=== PATIENT | female | born 1980 ===

== ENCOUNTER 2021-02-03 14:03 | Outpatient (REF) | payer OTHER, SELFPAY ==
--- NOTE | ~2021-02-03 | MM_ITS ---
EXAMINATION: MM DIAGNOSTIC DIGITAL BREAST TOMOSYNTHESIS, BILATERAL US DIAGNOSTIC ULTRASOUND BREAST, LEFT CLINICAL INFORMATION: Due for yearly. Also follow-up probable fibroadenoma mid upper outer left breast. The lifetime risk of breast cancer based on the Tyrer-Cuzick Model is 12%. COMPARISON: Mammography: 02/04/2020, 01/31/2019, 01/21/2017; targeted left breast ultrasound 02/02/2019, 08/06/2019, and 02/04/2020. TECHNIQUE: Digital breast tomosynthesis is performed in both the craniocaudal and mediolateral oblique views along with computer-aided detection (CAD). Synthesized 2D images are generated from the tomosynthesis. Ultrasound left breast is targeted to the upper outer quadrant. Grayscale imaging and color Doppler are performed without and with harmonics. FINDINGS: There are scattered areas of fibroglandular density (ACR BI-RADS breast composition Category b). Parenchymal pattern is similar to prior studies with denser breast tissue composition in the upper outer quadrant. There is no interval mass or developing density or architectural abnormality. There is an oval circumscribed nodule again noted mid upper outer left breast similar to prior studies. No abnormal calcifications. The axilla and skin contours are unremarkable. Ultrasound of the left breast circumscribed solid mass 3:00 position 10-12 cm from nipple shows no significant changes in size or shape. The mass measures 1.4 x 1.2 x 0.8 cm. Prior measurement is 1.5 x 1.3 x 0.8 cm on 02/04/2020 and 1.5 x 1.1 x 0.8 cm on initial ultrasound of this area 02/02/2019. The lesion is now considered benign and is likely a fibroadenoma. Results are discussed with the patient at time of visit. MM/MM tomosynthesis diagnostic BI IMPRESSION: 1. Mammography shows no significant changes from prior studies. 2. Left breast solid mass 3:00 position is 1.4 cm, stable on ultrasound when compared with prior exams, and now considered to be benign, likely fibroadenoma. ASSESSMENT: BI-RADS 2: Benign RECOMMENDATION: Routine annual mammography screening. This patient's information was entered into a reminder system with a target due date for their next mammogram.
== END 2021-02-03 14:04 | disposition home or self-care (01) ==
LOC: HO.MAMMO 14:03
PROVIDERS: PCP Internal Medicine; Visit Provider Internal Medicine
DX: N63.25 Unspecified lump in the left breast, overlapping quadrants (principal)
CPT/HCPCS: 76642; 77062; 77066

== ENCOUNTER 2021-02-25 15:22 | Outpatient (REF) | payer OTHER, SELFPAY ==
[2021-02-25 17:23] LABS: Appearance Urine CLEAR; Color Urine YELLOW; Glucose Urine UA NEG (NEG); Leukocyte Esterase Urine NEG (NEG); Nitrite Urine NEG (NEG); PH 5.5 (5.0-8.0); Specific Gravity - Urine 1.025 (1.005-1.025); UACC Culture Trigger NO; Urine Blood TRACE (NEG); Urine Ketones NEG (NEG); Urine Protein NEG (NEG-TRACE)
[2021-02-25 18:07] LABS: Bacteria Urine TRACE /LPF; RBC Urine 0 /HPF (0); Squamous Epithelial Cell Urine TRACE /LPF; WBC Urine 0 /HPF (0-4)
== END 2021-02-25 15:23 | disposition home or self-care (01) ==
LOC: HO.LAB 15:22
PROVIDERS: PCP Internal Medicine; Visit Provider Internal Medicine
DX: R35.0 Frequency of micturition (principal)
CPT/HCPCS: 81001

== ENCOUNTER 2021-10-20 08:54 | Outpatient (REF) | payer OTHER, SELFPAY ==
[2021-10-20 10:20] LABS: Alanine Aminotransferase 15 U/L (0-31); Albumin Level 4.4 g/dL (3.5-5.0); Alkaline Phosphatase 52 U/L (39-117); Anion Gap 12 (12-20); Aspartate Amino Transferase 12 U/L (5-31); Bilirubin Total 0.5 mg/dL (0.0-1.0); Blood Urea Nitrogen 18 mg/dL (9-16); Calcium 9.3 mg/dL (8.4-10.2); Carbon Dioxide 25 mmol/L (22-29); Chloride 108 mmol/L (96-108); Cholesterol 208 mg/dL; Estimated Glomerular Filt Rate > 60; Glucose Fasting 110 mg/dL (60-99); HDL Cholesterol 46 mg/dL; LDL Cholesterol Calculated 148 mg/dl; Potassium 4.8 mmol/L (3.3-5.1); Sodium 140 mmol/L (135-145); Total Protein 7.2 g/dL (6.5-8.0); Triglycerides 70 mg/dL
[2021-10-20 10:40] LABS: Vitamin D 25-OH Total 13.4 ng/mL (>30)
== END 2021-10-20 08:55 | disposition home or self-care (01) ==
LOC: HO.LAB 08:54
PROVIDERS: PCP Internal Medicine; Visit Provider Internal Medicine
DX: Z00.00 Encounter for general adult medical examination without abnormal findings (principal); E78.5 Hyperlipidemia, unspecified; E55.9 Vitamin D deficiency, unspecified
CPT/HCPCS: 36415; 80053; 80061; 82306

== ENCOUNTER 2021-12-10 12:04 | Outpatient (REF) | payer OTHER, SELFPAY ==
[2021-12-10 21:15] LABS: CT PCR NOT DETECTED (Not Detect.); NG PCR NOT DETECTED (Not Detect.)
[2021-12-16 19:06] LABS: HPV mRNA E6/E7 rflx Not Detected (Not Detected)
== END 2021-12-10 12:05 | disposition home or self-care (01) ==
LOC: HO.LAB 12:04
PROVIDERS: Visit Provider Advanced Practice Midwife
DX: Z01.419 Encounter for gynecological examination (general) (routine) without abnormal findings (principal); Z11.51 Encounter for screening for human papillomavirus (HPV); Z20.2 Contact with and (suspected) exposure to infections with a predominantly sexual mode of transmission
CPT/HCPCS: 87491; 87591; 87624; 88142

== ENCOUNTER 2022-02-05 09:53 | Outpatient (REF) | payer OTHER, SELFPAY ==
--- NOTE | ~2022-02-05 | MM_ITS ---
EXAMINATION: MM SCREENING DIGITAL BREAST TOMOSYNTHESIS, BILATERAL CLINICAL INFORMATION: Screening. Asymptomatic. The lifetime risk of breast cancer based on the Tyrer-Cuzick Model is 20%. COMPARISON: Mammography: 02/03/2021, 02/04/2020, 01/31/2019; targeted left breast ultrasound 02/03/2021, 02/04/2020, 08/06/2019, 02/02/2019. TECHNIQUE: Digital breast tomosynthesis is performed in both the craniocaudal and mediolateral oblique views along with computer-aided detection (CAD). Synthesized 2D images are generated from the tomosynthesis. FINDINGS: The breasts are heterogeneously dense, which may obscure small masses (ACR BI-RADS breast composition Category c). Parenchymal pattern is similar to prior studies and there is no developing density or interval mass or architectural abnormality. No abnormal calcifications. The axilla and skin contours are unremarkable. Circumscribed oval mass under 2 cm mid outer left breast is chronic finding and likely a fibroadenoma. There is a small adjacent stable benign circumscribed satellite nodule or intramammary node. MM/MM tomosynthesis screening BI IMPRESSION: No significant changes from prior studies. ASSESSMENT: BI-RADS 2: Benign RECOMMENDATION: Routine annual mammography screening. This patient's information was entered into a reminder system with a target due date for their next mammogram.
== END 2022-02-05 09:54 | disposition home or self-care (01) ==
LOC: HO.MAMMO 09:53
PROVIDERS: PCP Internal Medicine; Visit Provider Internal Medicine
DX: Z12.31 Encounter for screening mammogram for malignant neoplasm of breast (principal)
CPT/HCPCS: 77063; 77067

== ENCOUNTER → 2022-09-21 08:46 | Outpatient (REF) | payer OTHER, SELFPAY | LOC: HO.SL 08:46 | PROVIDERS: PCP Internal Medicine; Visit Provider Internal Medicine | DX: R40.0 Somnolence (principal); R06.83 Snoring | CPT/HCPCS: 95806 ==

== ENCOUNTER 2022-10-13 08:54 | Outpatient (REF) | payer OTHER, SELFPAY ==
[2022-10-13 09:05] LABS: MANUAL DIFF FLAG NO
[2022-10-13 09:23] LABS: Basophils Percent Auto 0.4 % (0-2); Eosinophils Absolute Auto 0.1 X10*3/uL (0.0-0.4); Hematocrit 40.4 % (37.0-47.0); Hemoglobin 12.6 g/dl (12.0-16.0); Imm Gran Abs Auto 0.01 X10*3/uL (0.00-0.03); Imm Gran Pct Auto 0.2 % (0.0-0.4); Lymphocytes Absolute Auto 1.3 X10*3/uL (1.2-4.9); Lymphocytes Percent Auto 22.9 % (20-40); Mean Corpuscular HGB Conc 31.2 g/dl (31.0-35.0); Mean Corpuscular Hemoglobin 27.3 pg (27.0-33.0); Mean Corpuscular Volume 87.4 fL (80.0-98.0); Mean Platelet Volume 9.5 fL (9.4-12.3); Monocytes Absolute Auto 0.6 X10*3/uL (0.1-1.2); Neutrophils Absolute Auto 3.6 x10*3/uL (2.0-8.3); Neutrophils Percent Auto 64.5 % (45-73); Platelet Count 279 X10*3/uL (160-400); Red Blood Count 4.62 X10*6/uL (4.20-5.50); Red Cell Distribution Width 12.8 % (11.0-16.0); White Blood Count 5.5 X10*3/uL (4.8-10.8)
[2022-10-13 10:05] LABS: Alanine Aminotransferase 29 U/L (0-31); Albumin Level 4.3 g/dL (3.5-5.0); Alkaline Phosphatase 56 U/L (39-117); Anion Gap 11 (12-20); Aspartate Amino Transferase 15 U/L (5-31); Bilirubin Total 0.5 mg/dL (0.0-1.0); Blood Urea Nitrogen 13 mg/dL (9-16); Calcium 9.1 mg/dL (8.4-10.2); Carbon Dioxide 24 mmol/L (22-29); Chloride 109 mmol/L (96-108); Cholesterol 202 mg/dL; Estimated Glomerular Filt Rate > 60; Glucose Fasting 106 mg/dL (60-99); HDL Cholesterol 48 mg/dL; LDL Cholesterol Calculated 142 mg/dl; Potassium 4.7 mmol/L (3.3-5.1); Sodium 139 mmol/L (135-145); Total Protein 6.7 g/dL (6.5-8.0); Triglycerides 63 mg/dL
[2022-10-13 10:23] LABS: Vitamin D 25-OH Total 17.8 ng/mL (>30)
== END 2022-10-13 08:55 | disposition home or self-care (01) ==
LOC: HO.LAB 08:54
PROVIDERS: PCP Internal Medicine; Visit Provider Internal Medicine
DX: Z00.00 Encounter for general adult medical examination without abnormal findings (principal); E78.5 Hyperlipidemia, unspecified; Z88.9 Allergy status to unspecified drugs, medicaments and biological substances; E55.9 Vitamin D deficiency, unspecified
CPT/HCPCS: 36415; 80053; 80061; 82306; 85025

== ENCOUNTER 2023-02-07 09:48 | Outpatient (REF) | payer OTHER, SELFPAY ==
--- NOTE | ~2023-02-07 | MM_ITS ---
EXAMINATION: MM SCREENING DIGITAL BREAST TOMOSYNTHESIS, BILATERAL CLINICAL INFORMATION: Screening. Asymptomatic. COMPARISON: Mammography: This study is compared with prior exams dating back to 2019. TECHNIQUE: Digital breast tomosynthesis is performed in both the craniocaudal and mediolateral oblique views along with computer-aided detection (CAD). Synthesized 2D images are generated from the tomosynthesis. FINDINGS: There are scattered areas of fibroglandular density (ACR BI-RADS breast composition Category b). There are no significant masses, abnormal calcifications, or other abnormalities. On prior sonographic studies from 2020 and earlier, a benign, well-circumscribed mass in known in the 3:00 position of left breast. This was 14 mm in greatest dimension and was shown to represent is stable solid mass consistent with a fibroadenoma. MM/MM tomosynthesis screening BI IMPRESSION: No mammographic evidence of malignancy. ASSESSMENT: BI-RADS BI-RADS 2 - Benign Findings RECOMMENDATION: Routine annual mammography screening. 1 year F/U This examination should not preclude the clinical evaluation of a suspicious palpable abnormality. This patient's information was entered into a reminder system with a target due date for their next mammogram.
== END 2023-02-07 09:49 | disposition home or self-care (01) ==
LOC: HO.MAMMO 09:48
PROVIDERS: PCP Internal Medicine; Visit Provider Internal Medicine
DX: Z12.31 Encounter for screening mammogram for malignant neoplasm of breast (principal)
CPT/HCPCS: 77063; 77067

== ENCOUNTER → 2023-02-07 10:00 | Outpatient (BNV) | payer OTHER, SELFPAY | PROVIDERS: PCP Internal Medicine; Visit Provider Radiology Diagnostic Radiology | DX: Z12.31 Encounter for screening mammogram for malignant neoplasm of breast (principal) | CPT/HCPCS: 77063; 77067 ==

== ENCOUNTER 2023-09-15 08:47 | Outpatient (AMB) | payer OTHER, SELFPAY ==
--- NOTE | 2023-09-15 08:49 | A.OFFVIS_ITS ---
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 Doing well with no concerns. Having painful bumps on the external area, resolve on there own. She tries to eat healthy, no regular exercise. Regular monthly menses. Currently is sexually active. She denies vaginal itching and irritation. STI screening offered; she declines. Denies family history of ovarian or colon cancer. FH of breast cancer-sister. Last pap smear 2021, negative. Mammogram: 2022. [facility] Medical History FH: breast cancer in first degree relative Physical exam Fibroadenoma of left breast Pure hypercholesterolemia Hypovitaminosis D Surgical History History of tubal ligation History of removal of cyst History of appendectomy History of section Family History Father Medical history unknown Mother Skin cancer Diabetes Maternal Grandmother Breast cancer Maternal Grandfather Cancer CVD (cardiovascular disease) Sister Breast cancer, Onset Age: 40 Social History Housing: House Alcohol intake: never Patient Tobacco Use Status: Former Tobacco user Tobacco use type: Cigarette e-Cigarette/Vaping Use: Never Used Second Hand Smoke Exposure: No service: No Current occupational status: employed Current occupational exposures/hazards: No Cognitive needs: No Hearing needs: No Vision needs: No Female Reproductive History Menstrual Duration of menses: 3-5 days Date of last menstrual period: 08/19/23 control method: permanent sterilization Permanent Sterilization: BTL Total pregnancies: 2 Full term: 3 Number of Living Children: 3 Multiple births: 1 Date of last pap smear: 12/10/21 (neg pap and hpv) Date of Mammogram: 02/07/23 (Birad 2) Review of Systems Const All systems reviewed & are unremarkable except as noted in HPI and below Reports as per HPI Eyes Reports no additional complaints ENT Reports no additional complaints Card Reports no additional complaints Resp Reports no additional complaints GI Reports as per HPI and Reports no additional complaints Reports as per HPI Musc Reports no additional complaints Skin/Breast Reports as per HPI Neuro Reports no additional complaints Psych Reports no additional complaints Endo Reports no additional complaints Roberth/Lymph Reports no additional complaints Aller/Immun Reports no additional complaints Physical Exam Vital Signs: Last Vital Signs BP 120/78 09/15/23 08:50 BMI result Body Mass Index 27.3 Const General: cooperative, healthy appearing, no acute distress, well developed and alert Orientation/consciousness: patient oriented x3 HEENT Head: Yes normal to inspection Eyes General: appearance normal, both eyes and all related structures Neck Neck: Yes normal visual inspection Thyroid: Thyroid normal Chest Chest palpation & inspection: normal inspection of the chest and other (no puckering, dimpling, peau de orange, retraction, discharge, masses) Breast/axilla inspection: normal inspection of the breasts Breast/axilla palpation: normal palpation of the breasts Resp Effort & Inspection: normal respiratory effort GI Inspection: Yes normal to inspection Palpation (GI): Soft to palpation Rectal Exam - Female: deferred Other: Shaving vulva, no lesions or pustules, healing area on the mons w/ scattered small scarring. General: Yes bladder normal to palpation External Female Exam: normal external appearance and normal appearance of the urethra Speculum Exam - Vagina: normal appearance of the vagina, normal palpation and normal vaginal discharge Speculum Exam - Cervix: normal appearance of the cervix and normal palpation Bimanual exam- vagina & uterus: normal bimanual exam, normal palpation, uterine size normal, bladder normal to palpation, normal palpation and non-tender Bimanual Exam- Adnexa, other: no masses Skin General skin exam: no rashes or lesions noted Rashes: no rashes Neuro General: patient oriented x3 Cognition (Neuro): normal cognition Extrem General: Yes normal to inspection Psych Attitude: cooperative Thought process: Normal thought process present Assessment & Plan Assessment & Plan (1) Encounter for well woman exam with routine gynecological exam: Code(s): Z01.419 - Encounter for gynecological examination (general) (routine) without abnormal findings Plan Discussed: Current recommendations for pap smears per ASCCP guidelines. Breast awareness and periodic breast exams. Maintain a healthy lifestyle including a well balanced diet and routine exercise. Advised to stop shaving, use of an antimicrobial soap, rinse well, dry with cotton, use cotton underwear and loose outer clothing, if any concerns or has a area that needs to be examined advised to come in during the time when booking the appointment so we can see an accurate description of what she is experiencing 1st hand. Mammogram yearly. Patient verbalizes understanding and agrees to the plan of care. She was given opportunity to ask questions and all questions were answered to the best of my ability. 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 This note is constructed using voice recognition software. While every effort has been made to ensure accuracy, interventional radiologist errors may have been included. Coding Level of Care Code Est Pt Prev Care 40-64y(50829) Diagnoses Encounter for well woman exam with routine gynecological exam Z01.419
[2023-09-15 08:50] VITALS: BP 120/78; BMI 27.3
== END 2023-09-15 09:22 | disposition home or self-care (01) ==
PROVIDERS: PCP Internal Medicine; Visit Provider Advanced Practice Midwife
DX: Z01.419 Encounter for gynecological examination (general) (routine) without abnormal findings (principal)
CPT/HCPCS: 99396

== ENCOUNTER → 2023-09-15 08:47 | Outpatient (BNVA) | payer OTHER, SELFPAY | PROVIDERS: PCP Internal Medicine; Visit Provider Advanced Practice Midwife | DX: Z01.419 Encounter for gynecological examination (general) (routine) without abnormal findings (principal) | CPT/HCPCS: 99396 ==

== ENCOUNTER 2023-10-18 09:14 | Outpatient (AMB) | payer OTHER, SELFPAY ==
--- NOTE | 2023-10-18 09:19 | MHC.PC.OV ---
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 Mammogram done January 2023. Pap smear done 2021 with negative HPV. Denies any chest pain or shortness of breath. Complains of pain in feet and feels like they are swollen since she had COVID-19 for the 2nd time in July 2023. Has full active range of motion. The pain in feet improves soaking them in hot water. [facility] Medical History (Updated 10/18/23 @ 09:54 by Merlyn Ferreira MD) FH: breast cancer in first degree relative Physical exam Fibroadenoma of left breast Pure hypercholesterolemia Hypovitaminosis D Surgical History History of tubal ligation History of removal of cyst History of appendectomy History of section Family History Father Medical history unknown Mother Skin cancer Diabetes Maternal Grandmother Breast cancer Maternal Grandfather Cancer CVD (cardiovascular disease) Sister Breast cancer, Onset Age: 40 Social History Housing: House Alcohol intake: never Patient Tobacco Use Status: Former Tobacco user Tobacco use type: Cigarette e-Cigarette/Vaping Use: Never Used Second Hand Smoke Exposure: No service: No Current occupational status: employed Current occupational exposures/hazards: No Cognitive needs: No Hearing needs: No Vision needs: No Questionnaire PHQ-9 Over the last 2 weeks, how often have you been bothered by any of the following problems? 1. Little interest or pleasure in doing things: not at all 2. Feeling down, depressed, or hopeless: not at all 3. Trouble falling or staying asleep, or sleeping too much: not at all 4. Feeling tired or having little energy: not at all 5. Poor appetite or overeating: not at all 6. Feeling bad about yourself - or that you are a failure or have let yourself or your family down: not at all 7. Trouble concentrating on things, such as reading the newspaper or watching television: not at all 8. Moving or speaking so slowly that other people could have noticed. Or the opposite - being so fidgety or restless that you have been moving around a lot more than usual: not at all 9. Thoughts that you would be better off or of hurting yourself in some way: not at all Total score: 0 Depression Screening Interpretation: Negative Depression Screening Done: Yes [id number] - PHQ-9 Billing: Yes Source: Developed by Drs. Chai Jaquez, Yulissa Gunn, Jagdeep Judge and colleagues, with an educational ruthann from [employer]. Thrive Questionnaire Date Thrive assessed: 10/18/23 I am a: Patient What is your living situation today?: I have a steady place to live Within the past 12 months, did the food you bought not last and you didn't have the money to get more?: Never true Within the past 12 months, did you worry whether your food would run out before you got money to buy more?: Never true Do you have trouble paying for medicines?: No Do you have trouble getting transportation to medical appointments?: No Do you have trouble paying your heating and electricity bill?: No Do you have trouble taking care of your child, family member or friend?: No Do you have trouble with day-to-day activities such as bathing, preparing meals, shopping, managing finances, etc.?: No Are you currently unemployed and looking for a job?: No Are you interested in more education?: No Please select the resources that you would like help with: None Currently or been in a relationship where the following occur: no concerns reported THRIVE Score: 0 AUDIT C Alcohol Use Questionnaire (AUDIT-C) 1. How often do you have a drink containing alcohol?: Never Total Score: 0 Score Reviewed/Action Taken: No WILL-7 AMB Questionnaire WILL-7 Date WILL - 7 assessed: 10/18/23 Feeling nervous, anxious, or on edge: 0 = Not at all Not being able to stop or control worryin = Not at all Worrying too much about different things: 0 = Not at all Trouble relaxin = Not at all Being so restless that it is hard to sit still: 0 = Not at all Becoming easily annoyed or irritable: 0 = Not at all Feeling afraid as if something awful might happen: 0 = Not at all Total WILL-7 score (0-4 normal; 5-9 mild; 10-14 moderate; 15-21 severe): 0 Source: Developed by Drs. Chai Jaquez, Yulissa Gunn, Jagdeep Judge and colleagues, with an educational ruthann from [employer]. WILL-7 Assessment Billing WILL-7 Assessment Tool: WILL-7 Assessment 16652 Review of Systems Const All systems reviewed & are unremarkable except as noted in HPI and below Eyes Reports no additional complaints, Denies change in vision and Denies other visual disturbances Card Denies chest pain at rest, Denies chest pain with activity, Denies edema, Denies irregular heart rhythm, Denies claudication, Denies dyspnea, Denies dyspnea on exertion, Denies orthopnea, Denies paroxysmal nocturnal dyspnea and Denies slow heart rate Resp Denies cough, Denies dyspnea and Denies dyspnea on exertion Physical exam (Primary Care) Vital Signs: Last Vital Signs BP 120/78 10/18/23 09:24 BMI result Body Mass Index 27.6 Tobacco/Smoking Status: Tobacco use Status Tobacco use date assessed 10/18/23 10/18/23 09:23 Patient Tobacco Use Status Former Tobacco user 10/18/23 09:23 Tobacco use type Cigarette 10/18/23 09:23 e-Cigarette/Vaping Use Never Used 10/18/23 09:23 PHQ-9: PHQ-9 Score PHQ-9: Total score 0 10/18/23 09:50 Depression Screening Interpretation: Negative Thrive Assessment: Date of Thrive Assessment Date Thrive assessed 10/18/23 10/18/23 09:23 Currently or been in a relationship where the following occur: no concerns reported Const Orientation/consciousness: patient oriented x3 HENCO Head: Yes normal to inspection, Yes normocephalic and Yes atraumatic Ears: external ears normal Eyes General: appearance normal, both eyes and all related structures Eyelids: Yes eyelids normal Conjunctivae: conjunctivae normal Neck Neck: Yes normal visual inspection and Yes supple Resp Effort & Inspection: normal respiratory effort Auscultation: clear to auscultation bilaterally Cardio Jugular venous distension: no JVD Rate: regular rate Rhythm: regular rhythm Heart sounds: S1 normal heart sound present and S2 normal heart sound present GI Inspection: Yes normal to inspection Palpation (GI): Soft to palpation and nontender Auscultation: normal bowel sounds Skin General skin exam: no rashes or lesions noted Neuro General: patient oriented x3 and no focal motor deficits Extrem General: Yes full ROM Psych Appearance: grossly normal Assessment and Plan Assessment & Plan (1) Physical exam: Code(s): Z00.00 - Encounter for general adult medical examination without abnormal findings Plan: Repeat in a year. Orders: Orders Comprehensive [place]. Panel Fast Today Z00.00 - Encounter for general adult medical examination without abnormal findings XR foot LT 2V Today M79.672 - Pain in left foot Vitamin D 25-OH Total Today E55.9 - Vitamin D deficiency, unspecified Vitamin B12 and Folate Today E53.8 - Deficiency of other specified B group vitamins Complete Blood Count Auto Diff Today Z88.9 - Allergy status to unspecified drugs, medicaments and biological substances Lipid Panel Today E78.5 - Hyperlipidemia, unspecified, Z00.00 - Encounter for general adult medical examination without abnormal findings XR foot RT 2V Today M79.671 - Pain in right foot Referrals Podiatry Referral M79.671 - Pain in right foot, M79.672 - Pain in left foot Medications: Refilled fluticasone propionate 50 mcg/actuation (Flonase Allergy Relief) administer into each nostril 1 spray intranasal DAILY 16 grams 1RF 30 days cholecalciferol (vitamin D3) 50 mcg PO DAILY 90 caps 1RF 90 days E55.9 - Vitamin D deficiency, unspecified Coding Level of Care Code Est Pt Prev Care 40-64y(34223) Diagnoses Physical exam Z00.00 Additional Codes WILL-7 Assessment Billing - WILL-7 Assessment Tool: WILL-7 Assessment [id number] ([id number]) Time Spent (min) 32
[2023-10-18 09:24] VITALS: BP 120/78; BMI 27.6
== END 2023-10-18 09:53 | disposition home or self-care (01) ==
PROVIDERS: Visit Provider Internal Medicine
DX: Z00.00 Encounter for general adult medical examination without abnormal findings (principal)
CPT/HCPCS: 99396

== ENCOUNTER 2023-12-07 08:19 | Outpatient (REF) | payer OTHER, SELFPAY ==
[2023-12-07 08:35] LABS: MANUAL DIFF FLAG NO
[2023-12-07 08:52] LABS: Basophils Percent Auto 0.5 % (0-2); Eosinophils Absolute Auto 0.1 X10*3/uL (0.0-0.4); Eosinophils Percent Auto 1.5 % (0-4); Hematocrit 37.6 % (37.0-47.0); Imm Gran Abs Auto 0.02 X10*3/uL (0.00-0.03); Imm Gran Pct Auto 0.3 % (0.0-0.4); Lymphocytes Absolute Auto 1.4 X10*3/uL (1.2-4.9); Lymphocytes Percent Auto 22.9 % (20-40); Mean Corpuscular HGB Conc 31.9 g/dl (31.0-35.0); Mean Corpuscular Hemoglobin 27.4 pg (27.0-33.0); Mean Corpuscular Volume 85.8 fL (80.0-98.0); Mean Platelet Volume 9.6 fL (9.4-12.3); Monocytes Absolute Auto 0.5 X10*3/uL (0.1-1.2); Monocytes Percent Auto 8.8 % (2-11); Neutrophils Absolute Auto 3.9 x10*3/uL (2.0-8.3); Platelet Count 274 X10*3/uL (160-400); Red Blood Count 4.38 X10*6/uL (4.20-5.50); Red Cell Distribution Width 13.5 % (11.0-16.0); White Blood Count 5.9 X10*3/uL (4.8-10.8)
[2023-12-07 09:33] LABS: Alanine Aminotransferase 27 U/L (0-31); Albumin Level 4.2 g/dL (3.5-5.0); Alkaline Phosphatase 50 U/L (39-117); Anion Gap 12 (12-20); Aspartate Amino Transferase 19 U/L (5-31); Bilirubin Total 0.4 mg/dL (0.0-1.0); Blood Urea Nitrogen 17 mg/dL (9-16); Calcium 8.6 mg/dL (8.4-10.2); Carbon Dioxide 20 mmol/L (22-29); Chloride 112 mmol/L (96-108); Cholesterol 190 mg/dL (<200); Estimated Glomerular Filt Rate > 60; Glucose Fasting 111 mg/dL (60-99); HDL Cholesterol 50 mg/dL (>40); LDL Cholesterol Calculated 127 mg/dL (<100); Potassium 4.8 mmol/L (3.3-5.1); Sodium 139 mmol/L (135-145); Total Protein 7.2 g/dL (6.5-8.0); Triglycerides 69 mg/dL (<150)
[2023-12-07 09:51] LABS: Vitamin D 25-OH Total 16.8 ng/mL (>30)
[2023-12-07 10:48] LABS: Folate 10.8 ng/mL (> or = 4.0); Vitamin B12 250 pg/mL (200-900)
== END 2023-12-07 08:20 | disposition home or self-care (01) ==
LOC: HO.LAB 08:19
PROVIDERS: PCP Internal Medicine; Visit Provider Internal Medicine
DX: Z00.00 Encounter for general adult medical examination without abnormal findings (principal); E55.9 Vitamin D deficiency, unspecified; E78.5 Hyperlipidemia, unspecified; E53.8 Deficiency of other specified B group vitamins; Z88.9 Allergy status to unspecified drugs, medicaments and biological substances
CPT/HCPCS: 36415; 80053; 80061; 82306; 82607; 82746; 85025

== ENCOUNTER 2024-02-20 10:12 | Outpatient (REF) | payer OTHER, SELFPAY ==
--- NOTE | ~2024-02-20 | MM_ITS ---
EXAMINATION: MM SCREENING DIGITAL BREAST TOMOSYNTHESIS, BILATERAL CLINICAL INFORMATION: Screening. Asymptomatic. COMPARISON: Mammography: Comparison is made with available priors TECHNIQUE: Digital breast mammography with tomosynthesis is performed in both the craniocaudal and mediolateral oblique views along with computer-aided detection (CAD). FINDINGS: The breasts are heterogeneously dense, which may obscure small masses (ACR BI-RADS breast composition Category c). There are no significant masses, abnormal calcifications, or other abnormalities. MM/MM tomosynthesis screening BI IMPRESSION: No mammographic evidence of malignancy. ASSESSMENT: BI-RADS BI-RADS 1 - Negative RECOMMENDATION: Routine annual mammography screening. 1 year F/U This examination should not preclude the clinical evaluation of a suspicious palpable abnormality. This patient's information was entered into a reminder system with a target due date for their next mammogram. Electronically signed by: Milana Valdivia DO 03/05/2024 05:52 PM EDT
== END 2024-02-20 10:13 | disposition home or self-care (01) ==
LOC: HO.MAMMO 10:12
PROVIDERS: PCP Internal Medicine; Visit Provider Internal Medicine
DX: Z12.31 Encounter for screening mammogram for malignant neoplasm of breast (principal)
CPT/HCPCS: 77063; 77067

== ENCOUNTER → 2024-02-20 10:15 | Outpatient (BNV) | payer OTHER, SELFPAY | PROVIDERS: PCP Internal Medicine; Visit Provider Internal Medicine | DX: Z12.31 Encounter for screening mammogram for malignant neoplasm of breast (principal) | CPT/HCPCS: 77063; 77067 ==

== ENCOUNTER 2024-04-06 09:34 | Outpatient (AMB) | payer OTHER, SELFPAY ==
--- NOTE | 2024-04-06 09:42 | MHC.OFFWIV ---
Intake Vital Signs 04/06/24 09:44 Height 5 ft 3 in Weight 156 lb BMI 27.6 BP 112/70 Blood Pressure Location Rt brachial Position Sitting Pulse 99 Pulse Source Pulse Oximeter Pulse Oximetry (%) 99 Oxygen Delivery Method Room Air Intake Visit Reasons: EP-private part abscess Intake Note: Patient here for abscess on left labia that has been present for about 2 days and is becoming more painful. Patient Tobacco Use Status: Former Tobacco user Allergies tramadol Allergy (Unknown, Verified 04/06/24 09:45) vomiting, swelling, swelling Do you need a note to return to daycare/school/sports/work: Yes HPI HPI Comments History of Present Illness Details Patient is a 43-year-old female complaining of 2 days of an abscess on her labia that is getting more painful and larger. She states she has had several of them in the past and has talked to her meter calibrator about them. They recommended she not shave or wax the area which she has been compliant with. She states that last night she did feel a little bit of a fever and chills but did not take a measured a temperature. She tells me she has never had a word catheter placed for the abscesses she has had in this area previously. [facility] Medical History FH: breast cancer in first degree relative Physical exam Fibroadenoma of left breast Pure hypercholesterolemia Hypovitaminosis D Surgical History History of tubal ligation History of removal of cyst History of appendectomy History of section Family History Father Medical history unknown Mother Skin cancer Diabetes Maternal Grandmother Breast cancer Maternal Grandfather Cancer CVD (cardiovascular disease) Sister Breast cancer, Onset Age: 40 Social History Housing: House Alcohol intake: never Patient Tobacco Use Status: Former Tobacco user Tobacco use type: Cigarette e-Cigarette/Vaping Use: Never Used Second Hand Smoke Exposure: No service: No Current occupational status: employed Current occupational exposures/hazards: No Cognitive needs: No Hearing needs: No Vision needs: No Review of Systems Const All systems reviewed & are unremarkable except as noted in HPI and below Physical Exam Vital Signs: Last Vital Signs Pulse 99 04/06/24 09:44 BP 112/70 04/06/24 09:44 Pulse Ox 99 04/06/24 09:44 Oxygen Delivery Method Room Air 04/06/24 09:44 BMI result Body Mass Index 27.6 Const General: cooperative, healthy appearing, comfortable, no acute distress and well developed Orientation/consciousness: patient oriented x3 Limitations: no limitations HEENT Head: Yes normal to inspection Ears: hearing grossly normal bilaterally General nose exam: Normal external nose present Face and sinus: Yes normal facial exam Eyes General: appearance normal, both eyes and all related structures Neck Neck: Yes normal visual inspection and Yes full ROM Resp Effort & Inspection: normal respiratory effort and able to speak in complete sentences Other: 4cm x 1.5cm left sided bartholin gland swelling with erythema, very tender to palpation Skin General skin exam: no rashes or lesions noted Neuro General: patient oriented x3 Extrem General: Yes normal to inspection Assessment & Plan Assessment & Plan (1) Bartholin's gland abscess: Code(s): N75.1 - Abscess of Bartholin's gland Plan: Due to the large size (>3cm) of the abscess, patient would be best served with an incision and drainage with a word catheter, we do not have a catheter at the walk-in clinic. I called [facility] and they were agreeable to seeing the patient today and asked her to head over to [address]. Relayed this information to the patient, she will be seeing one of the midwives to have an incision drainage and a word placement. Plan see above Coding Level of Care Code Est Pt Level 4 (31276) Diagnoses Bartholin's gland abscess N75.1
[2024-04-06 09:44] VITALS: BP 112/70; PULSE 99; O2SAT 99; BMI 27.6
== END 2024-04-06 11:42 | disposition home or self-care (01) ==
PROVIDERS: PCP Internal Medicine; Visit Provider Physician Assistant
DX: N75.1 Abscess of Bartholin's gland (principal)

== ENCOUNTER 2024-04-06 09:34 | Outpatient (REF) | payer OTHER, SELFPAY | END 2024-04-06 09:35 | disposition home or self-care (01) | LOC: HO.LAB 09:34 | PROVIDERS: PCP Internal Medicine; Visit Provider Physician Assistant | DX: N75.1 Abscess of Bartholin's gland (principal); N76.4 Abscess of vulva | CPT/HCPCS: 56420; 87070; 87205; 99212 ==

== ENCOUNTER 2024-04-06 11:03 | Outpatient (AMB) | payer OTHER, SELFPAY ==
--- NOTE | 2024-04-06 11:10 | MHC.OFFVIS ---
Intake Visit Reasons: Bartholin cyst Speech Correction Assistant: Speech Correction Assistant Present (Ting) Allergies tramadol Allergy (Unknown, Verified 04/06/24 11:10) vomiting, swelling, swelling Is last menstrual period known: Yes HPI Comments Details: Patient is here today sent from urgent care center for labial abscess treatment and evaluation. She reports symptoms onset were several days ago now the area is extremely painful. She reports having a Bartholin cyst in the past. No recent lesions of the skin or ingrown hairs noted and does not shave or wax. [facility] Medical History FH: breast cancer in first degree relative Physical exam Fibroadenoma of left breast Pure hypercholesterolemia Hypovitaminosis D Surgical History History of tubal ligation History of removal of cyst History of appendectomy History of section Family History Father Medical history unknown Mother Skin cancer Diabetes Maternal Grandmother Breast cancer Maternal Grandfather Cancer CVD (cardiovascular disease) Sister Breast cancer, Onset Age: 40 Social History Housing: House Alcohol intake: never Patient Tobacco Use Status: Former Tobacco user Tobacco use type: Cigarette e-Cigarette/Vaping Use: Never Used Second Hand Smoke Exposure: No service: No Current occupational status: employed Current occupational exposures/hazards: No Cognitive needs: No Hearing needs: No Vision needs: No Review of Systems Const All systems reviewed & are unremarkable except as noted in HPI and below Endo Reports no additional complaints Physical Exam Const General: cooperative, healthy appearing and no acute distress Other: Vulvar inspection-left labia edematous, erythematous throughout labia, no Bartholin cyst, no drainage, lesions, fluctuations, area indurated mid labia and skin is taunt, very tender to palpate. Psych Appearance: well kempt Attitude: cooperative Thought process: Normal thought process present Office Procedures Incision and Drainage Details: Incision and Drainage Procedure: The patient was placed in the dorsal lithotomy position. She was prepped with Betadine and 1.5ml Lidocaine 1% infiltrated to the area-left mid section of labia majora. The procedure was completed under aseptic technique. An #20needle was inserted and approx. 1cc of bloody purulent discharge was aspirated from the deep pocket was utilized. Culture obtained. Minimal bleeding was noted (few drops). The patient tolerated the procedure well and left the office in good condition. Post procedure Care: The patient was instructed to complete all of the antibiotics. Warm soaks/bath to the area prn. Warnings: if increased signs of infection, pain, swelling, fever >100.4, chills, or flu like symptoms-go to the emergency room immediately for further evaluation. You may use an OTC medication like Advil (2-3 tablets w/food per directions) or Tylenol as directed if no allergies. Return in 5-7 days for a follow up. Informed consent given: Yes Consent signed: Yes Anesthesia: local Incision with: needle Drainage quality: purulent and bloody Probed cavity: No Culture taken: Yes Lesion: erythema and induration Hemostasis: pressure Dressing: other (Nicki pad) Patient tolerated procedure: well Complications: No Assessment & Plan Assessment & Plan (1) Left genital labial abscess: Code(s): N76.4 - Abscess of vulva Category: Medical Plan Dr. Baltazar in room to evaluate patient for consultation, agrees with plan of care. See procedure notes. Culture pending. Start antibiotics complete all med. Use of [id number] medications for discomfort reviewed, to take with food. Continue with warm compresses every couple of hours while awake. Call if there is any increased pain, swelling, fever flu-like symptoms chills temperature over 100.4, lightheaded or dizziness. Return to the office early next week for recheck. Call sooner over the weekend if any concerns to the on-call provider. All of her questions and concerns were addressed to the best of my ability and shared decision making. She is agreeable to the plan of care. This note is constructed using voice recognition software. While every effort has been made to ensure accuracy, tornado chaser errors may have been included. Orders: Orders Routine Culture w Gram Stain Today N76.4 - Abscess of vulva Medications: New amoxicillin-pot clavulanate 875-125 mg 1 tab PO BID 10 days 20 tabs 0RF Coding Level of Care Code Procedure Only Diagnoses Left genital labial abscess N76.4
== END 2024-04-06 12:29 | disposition home or self-care (01) ==
PROVIDERS: PCP Internal Medicine; Visit Provider Advanced Practice Midwife
DX: N76.4 Abscess of vulva (principal)
CPT/HCPCS: 56420

== ENCOUNTER 2024-04-13 09:43 | Outpatient (AMB) | payer OTHER, SELFPAY ==
--- NOTE | 2024-04-13 09:49 | A.OFFVIS_ITS ---
Intake Visit Reasons: Recheck Medical Billing Instructor: Medical Billing Instructor Present (Ting) Allergies tramadol Allergy (Unknown, Verified 04/13/24 09:49) vomiting, swelling, swelling Is last menstrual period known: Yes HPI Comments Details: Patient is here today for a follow up on her labial cellulitis. She admits that the area is much improved and she is feeling better and is completing her antibiotics. She has no other concerns today. [facility] Medical History (Updated 04/13/24 @ 12:02 by Neelima Barrera CNM) Bartholin's gland abscess FH: breast cancer in first degree relative Physical exam Fibroadenoma of left breast Pure hypercholesterolemia Hypovitaminosis D Surgical History History of tubal ligation History of removal of cyst History of appendectomy History of section Family History Father Medical history unknown Mother Skin cancer Diabetes Maternal Grandmother Breast cancer Maternal Grandfather Cancer CVD (cardiovascular disease) Sister Breast cancer, Onset Age: 40 Social History Housing: House Alcohol intake: never Patient Tobacco Use Status: Former Tobacco user Tobacco use type: Cigarette e-Cigarette/Vaping Use: Never Used Second Hand Smoke Exposure: No service: No Current occupational status: employed Current occupational exposures/hazards: No Cognitive needs: No Hearing needs: No Vision needs: No Review of Systems Const All systems reviewed & are unremarkable except as noted in HPI and below Endo Reports no additional complaints Physical Exam Const General: cooperative, healthy appearing and no acute distress Other: External inspection only: Left labial edema 80% improved small residual remains deep within the tissue area is nontender and no erythema Psych Appearance: well kempt Attitude: cooperative Thought process: Normal thought process present Assessment & Plan Assessment & Plan (1) Vulvar cellulitis: Code(s): N76.2 - Acute vulvitis (2) Left genital labial abscess: Code(s): N76.4 - Abscess of vulva Category: Medical Plan Discussed: Culture results were mixed bacteria. Continue finishing all antibiotics, warm compress as needed p.r.n. residual lump within the deep tissue may not completely resolve, if area becomes swollen painful again to report to the office as soon as possible. She has a appointment for annual exam scheduled. All of her questions and concerns were addressed to the best of my ability and shared decision making. She is agreeable to the plan of care. This note is constructed using voice recognition software. While every effort has been made to ensure accuracy, floor and wall applier liquid errors may have been included. Coding Level of Care Code Est Pt Level 3 (45008) Diagnoses Vulvar cellulitis N76.2 Left genital labial abscess N76.4
== END 2024-04-13 10:02 | disposition home or self-care (01) ==
PROVIDERS: PCP Internal Medicine; Visit Provider Advanced Practice Midwife
DX: N76.2 Acute vulvitis (principal); N76.4 Abscess of vulva
CPT/HCPCS: 99024

== ENCOUNTER → 2024-04-13 09:43 | Outpatient (BNVA) | payer OTHER, SELFPAY | PROVIDERS: PCP Internal Medicine; Visit Provider Advanced Practice Midwife | DX: N76.2 Acute vulvitis (principal); N76.4 Abscess of vulva | CPT/HCPCS: 99212 ==

== ENCOUNTER 2024-10-24 09:25 | Outpatient (AMB) | payer OTHER, SELFPAY ==
--- NOTE | 2024-10-24 09:28 | A.OFFPC_ITS ---
Vital Signs 10/24/24 09:29 Height 5 ft 3 in Weight 155 lb BMI 27.5 BP 110/80 Blood Pressure Location Lt brachial Position Sitting Intake Visit Reasons: annual exam Intake Note: Patient here for an annual physical exam Language Therapist Required: No Accompanied by: Self / Same As Patient Allergies tramadol Allergy (Unknown, Verified 10/24/24 09:54) vomiting, swelling, swelling Medication List - Last Reconciled 10/24/24 by Merlyn Ferreira MD cholecalciferol (vitamin D3) 50 mcg PO DAILY 90 days fluticasone propionate 50 mcg/actuation (Flonase Allergy Relief) 1 spray intranasal DAILY 30 days Tobacco use date assessed: 10/24/24 Dental Screening Dental Screen Date: 10/24/24 Did you have a dental visit in the last 12 months?: No Did you have a dental problem in the last 6 months where you did not have access to dental care?: No Was dental information given to patient?: Patient has dentist HPI HPI Comments History of Present Illness Details The patient is a 43-year-old female presenting for a comprehensive wellness visit. Vaccination status indicates that the tetanus booster was administered in 2019. The patient is due for a mammogram on February 25, a year after the last screening. Pap smear results from 2021 were negative. Previous lab tests show slightly elevated glucose levels indicating pre-diabetes and decreased vitamin D levels, warranting re-evaluation. The patient has an allergy to tramadol, resulting in vomiting, and is currently on vitamin D supplementation. Surgical history reveals a tubal ligation, removal of a cyst from her right breast, an appendectomy, and two sections. Her mother is living with diabetes and a history of skin cancer, emphasizing the need for dermatological reviews. The patient has quit smoking and abstains from alcohol, with her social history impacting her health positively. She denies experiencing symptoms such as depression, anxiety, chest pain, shortness of breath, fever, or cough and reports normal bowel and urinary patterns. Colorectal cancer screening discussions entail the introduction of Cologuard, preferable for its noninvasive nature. Continuous monitoring and management of pre-diabetes via regular blood glucose assessments were encouraged. - Tetanus vaccination: up-to-date as of 2018 - Mammogram scheduled for February 25, 2023 - Pap smear negative in 2021, no abnorma l results - Regular monitoring of glucose levels d ue to pre-diabetes - Vitamin D supplementation due to defic iency - Discussed annual dermatological examin ation due to family history of skin cancer - Colon cancer screening options discuss ed: Cologuard as a non-invasive alternative to colonoscopy [facility] Medical History (Updated 10/24/24 @ 10:04 by Merlyn Ferreira MD) Bartholin's gland abscess FH: breast cancer in first degree relative Physical exam Fibroadenoma of left breast Pure hypercholesterolemia Hypovitaminosis D Surgical History History of tubal ligation History of removal of cyst History of appendectomy History of section Family History Father Medical history unknown Mother Skin cancer Diabetes Maternal Grandmother Breast cancer Maternal Grandfather Cancer CVD (cardiovascular disease) Sister Breast cancer, Onset Age: 40 Social History Housing: House Alcohol intake: never Patient Tobacco Use Status: Former Tobacco user Tobacco use type: Cigarette e-Cigarette/Vaping Use: Never Used Second Hand Smoke Exposure: No service: No Current occupational status: employed Current occupational exposures/hazards: No Cognitive needs: No Hearing needs: No Vision needs: No Questionnaire PHQ-9 Over the last 2 weeks, how often have you been bothered by any of the following problems? 1. Little interest or pleasure in doing things: not at all 2. Feeling down, depressed, or hopeless: not at all 3. Trouble falling or staying asleep, or sleeping too much: not at all 4. Feeling tired or having little energy: not at all 5. Poor appetite or overeating: not at all 6. Feeling bad about yourself - or that you are a failure or have let yourself or your family down: not at all 7. Trouble concentrating on things, such as reading the newspaper or watching television: not at all 8. Moving or speaking so slowly that other people could have noticed. Or the opposite - being so fidgety or restless that you have been moving around a lot more than usual: not at all 9. Thoughts that you would be better off or of hurting yourself in some way: not at all Total score: 0 Depression Screening Interpretation: Negative Depression Screening Done: Yes 26808 - PHQ-9 Billing: Yes Source: Developed by Drs. Chai Jaquez, Yulissa Gunn, Jagdeep Judge and colleagues, with an educational ruthann from [employer]. Thrive Questionnaire Date Thrive assessed: 10/24/24 I am a: Patient What is your living situation today?: I have a steady place to live Within the past 12 months, did the food you bought not last and you didn't have the money to get more?: Never true Within the past 12 months, did you worry whether your food would run out before you got money to buy more?: Sometimes True Do you have trouble paying for medicines?: No Do you have trouble getting transportation to medical appointments?: No Do you have trouble paying your heating and electricity bill?: I choose not to answer this question Do you have trouble taking care of your child, family member or friend?: No Do you have trouble with day-to-day activities such as bathing, preparing meals, shopping, managing finances, etc.?: No Are you currently unemployed and looking for a job?: No Are you interested in more education?: I choose not to answer this question Please select the resources that you would like help with: None Currently or been in a relationship where the following occur: No concerns reported THRIVE Score: 1 AUDIT C Alcohol Use Questionnaire (AUDIT-C) 1. How often do you have a drink containing alcohol?: Never Total Score: 0 Score Reviewed/Action Taken: No WILL-7 AMB Questionnaire WILL-7 Date WILL - 7 assessed: 10/24/24 Feeling nervous, anxious, or on edge: 0 = Not at all Not being able to stop or control worryin = Several days Worrying too much about different things: 1 = Several days Trouble relaxin = Several days Being so restless that it is hard to sit still: 0 = Not at all Becoming easily annoyed or irritable: 1 = Several days Feeling afraid as if something awful might happen: 1 = Several days Total WILL-7 score (0-4 normal; 5-9 mild; 10-14 moderate; 15-21 severe): 5 Source: Developed by Yulissa Covarrubias Kurt Kroenke and colleagues, with an educational ruthann from [employer]. WILL-7 Assessment Billing WILL-7 Assessment Tool: WILL-7 Assessment 31908 Review of Systems Const All systems reviewed & are unremarkable except as noted in HPI and below Card Denies chest pain at rest, Denies chest pain with activity, Denies edema, Denies irregular heart rhythm, Denies claudication, Denies dyspnea, Denies dyspnea on exertion, Denies orthopnea, Denies paroxysmal nocturnal dyspnea and Denies slow heart rate Resp Denies cough, Denies dyspnea and Denies dyspnea on exertion GI Denies abdominal pain, Denies change in bowel habits, Denies excessive flatus, Denies nausea and Denies vomiting Musc Denies abnormal gait Neuro Denies abnormal gait, Denies behavioral changes and Denies lack of coordination Psych Denies behavioral changes Physical exam (Primary Care) Vital Signs: Last Vital Signs BP 110/80 10/24/24 09:29 BMI result Body Mass Index 27.5 Tobacco/Smoking Status: Tobacco use Status Tobacco use date assessed 10/24/24 10/24/24 09:37 Patient Tobacco Use Status Former Tobacco user 10/24/24 09:37 Tobacco use type Cigarette 10/24/24 09:37 e-Cigarette/Vaping Use Never Used 10/24/24 09:37 PHQ-9: PHQ-9 Score PHQ-9: Total score 0 10/24/24 09:57 Depression Screening Interpretation: Negative Thrive Assessment: Date of Thrive Assessment Date Thrive assessed 10/24/24 10/24/24 09:37 Currently or been in a relationship where the following occur: No concerns reported [facility] Head: Yes normal to inspection, Yes normocephalic and Yes atraumatic Ears: external ears normal Eyes General: appearance normal, both eyes and all related structures Eyelids: Yes eyelids normal Conjunctivae: conjunctivae normal Neck Neck: Yes normal visual inspection and Yes supple Resp Effort & Inspection: normal respiratory effort Auscultation: clear to auscultation bilaterally Cardio Jugular venous distension: no JVD Rate: regular rate Rhythm: regular rhythm Heart sounds: S1 normal heart sound present and S2 normal heart sound present GI Inspection: Yes normal to inspection Palpation (GI): Soft to palpation and nontender Auscultation: normal bowel sounds Skin General skin exam: no rashes or lesions noted Neuro General: no focal motor deficits Extrem General: Yes full ROM Psych Appearance: grossly normal Coding Level of Care Code Complex EM visit Add On G2211 Diagnoses Physical exam Z00.00 Family history of skin cancer Z80.8 Additional Codes WILL-7 Assessment Billing - WILL-7 Assessment Tool: WILL-7 Assessment [id number] ([id number]) PHQ-9 - 42628 - PHQ-9 Billing: Yes ([id number]) Time Spent (min) 31 Assessment & Plan Assessment & Plan (1) Physical exam: Code(s): Z00.00 - Encounter for general adult medical examination without abnormal findings Category: Medical (2) Family history of skin cancer: Code(s): Z80.8 - Family history of malignant neoplasm of other organs or systems Category: Medical Plan The wellness visit emphasized health maintenance and preventive care. Continued focus on managing pre-diabetes involves monitoring blood glucose levels and maintaining vitamin D supplementation. Undergoing a mammogram as scheduled and considering annual dermatological evaluations for skin cancer prevention were discussed. The suitability of Cologuard as an initial screening for colorectal cancer was highlighted, pending results dictating further colonoscopic intervention if necessary. Patient was informed and verbally consented to the use of an ambient scribe for clinic note documentation during this visit. I discussed with the patient the significance of monitoring pre-diabetes and ensuring consistent follow-up on blood glucose levels. We reviewed the vitamin D results and agreed on continuing supplementation. I emphasized the importance of the upcoming mammogram and elaborated on preventive strategies concerning her family history of skin cancer. Regarding colorectal cancer screening, I explained the benefits and convenience of using Cologuard as an initial step, highlighting it as an alternative to a more traditional colonoscopy, contingent on positive findings that would necessitate further invasive studies. The patient showed understanding and agreed with the proposed preventive care plan. Orders: Orders Lipid Panel Today Z00.00 - Encounter for general adult medical examination without abnormal findings Comprehensive [place]. Panel Fast Today Z00.00 - Encounter for general adult medical examination without abnormal findings Vitamin D 25-OH Total Today E55.9 - Vitamin D deficiency, unspecified Referrals Dermatology Referral Z80.8 - Family history of malignant neoplasm of other organs or systems Medications: Refilled cholecalciferol (vitamin D3) 50 mcg PO DAILY 90 caps 1RF 90 days E55.9 - Vitamin D deficiency, unspecified Patient Instructions: - Continue taking prescribed vitamin D supplements. - Attend scheduled mammogram on February 25. - Follow up for routine glucose monitoring. - Consider scheduling a dermatology appointment for annual skin examination. - Opt for Cologuard test for colon cancer screening if desired. - Maintain healthy lifestyle practices to manage pre-diabetes. - Return if experiencing new symptoms or concerns.
[2024-10-24 09:29] VITALS: BP 110/80; BMI 27.5
== END 2024-10-24 10:03 | disposition home or self-care (01) ==
LOC: HO.HMCH 09:26
PROVIDERS: PCP Internal Medicine; Visit Provider Internal Medicine
DX: Z00.00 Encounter for general adult medical examination without abnormal findings (principal); Z80.8 Family history of malignant neoplasm of other organs or systems

== ENCOUNTER → 2024-10-24 09:25 | Outpatient (BNVA) | payer OTHER, SELFPAY | PROVIDERS: PCP Internal Medicine; Visit Provider Internal Medicine | DX: Z00.00 Encounter for general adult medical examination without abnormal findings (principal); R73.03 Prediabetes; E55.9 Vitamin D deficiency, unspecified; Z80.8 Family history of malignant neoplasm of other organs or systems | CPT/HCPCS: 96127; 99396 ==

== ENCOUNTER 2025-02-25 09:25 | Outpatient (REF) | payer OTHER, SELFPAY ==
--- NOTE | ~2025-02-25 | MM_ITS ---
EXAMINATION: MM SCREENING DIGITAL BREAST TOMOSYNTHESIS, BILATERAL CLINICAL INFORMATION: Screening. Asymptomatic. COMPARISON: Mammography: Comparison is made with available priors TECHNIQUE: Digital breast mammography with tomosynthesis is performed in both the craniocaudal and mediolateral oblique views along with computer-aided detection (CAD). FINDINGS: The breasts are heterogeneously dense, which may obscure small masses (ACR BI-RADS breast composition Category c). Bilateral scattered asymmetries are stable. Circumscribed oval mass upper outer left breast posterior depth stable dating back to 2020. There are no significant masses, abnormal calcifications, or other abnormalities. MM/MM tomosynthesis screening BI IMPRESSION: No mammographic evidence of malignancy. ASSESSMENT: BI-RADS BI-RADS 2 - Benign Findings RECOMMENDATION: Routine annual mammography screening. Patient has a strong family history of breast cancer including maternal aunt and sister diagnosed at age 40. Breast MRI yearly screening surveillance could be considered for further evaluation. Breast MRI would need to be ordered by the patient's providing clinician. 1 year F/U This examination should not preclude the clinical evaluation of a suspicious palpable abnormality. This patient's information was entered into a reminder system with a target due date for their next mammogram. Electronically signed by: Milana Valdivia DO 03/01/2025 09:00 AM EDT
== END 2025-02-25 09:26 | disposition home or self-care (01) ==
LOC: HO.MAMMO 09:25
PROVIDERS: PCP Internal Medicine; Visit Provider Internal Medicine
DX: Z12.31 Encounter for screening mammogram for malignant neoplasm of breast (principal)
CPT/HCPCS: 77063; 77067

== ENCOUNTER → 2025-02-25 09:45 | Outpatient (BNV) | payer OTHER, SELFPAY | PROVIDERS: PCP Internal Medicine; Visit Provider Internal Medicine | DX: Z12.31 Encounter for screening mammogram for malignant neoplasm of breast (principal) | CPT/HCPCS: 77063; 77067 ==

== ENCOUNTER 2025-03-19 08:33 | Outpatient (REF) | payer OTHER, SELFPAY ==
[2025-03-19 14:03] LABS: Alanine Aminotransferase 24 U/L (0-31); Albumin Level 4.3 g/dL (3.5-5.0); Alkaline Phosphatase 57 U/L (39-117); Anion Gap 10 (12-20); Aspartate Amino Transferase 21 U/L (5-31); Blood Urea Nitrogen 17 mg/dL (9-16); Calcium 8.7 mg/dL (8.4-10.2); Carbon Dioxide 24 mmol/L (22-29); Chloride 110 mmol/L (96-108); Cholesterol 184 mg/dL (<200); Estimated Glomerular Filt Rate > 60; HDL Cholesterol 47 mg/dL (>40); Potassium 5.0 mmol/L (3.3-5.1); Sodium 139 mmol/L (135-145); Total Protein 6.9 g/dL (6.5-8.0); Triglycerides 86 mg/dL (<150)
== END 2025-03-19 08:34 | disposition home or self-care (01) ==
LOC: HO.HKASLDS 08:33
PROVIDERS: PCP Internal Medicine; Visit Provider Internal Medicine
DX: Z00.00 Encounter for general adult medical examination without abnormal findings (principal); E55.9 Vitamin D deficiency, unspecified
CPT/HCPCS: 36415; 80053; 80061; 82306

== ENCOUNTER 2025-03-28 09:21 | Outpatient (AMB) | payer OTHER, SELFPAY ==
[2025-03-28 09:26] VITALS: BP 148/90; PULSE 94; TEMP 36.8; O2SAT 99; BMI 28.0
--- NOTE | 2025-03-28 09:26 | AM.OFFWIN_ITS ---
Intake Vital Signs 03/28/25 09:26 Height 5 ft 3 in Weight 158 lb BMI 28.0 BP 148/90 H Blood Pressure Location Rt brachial Position Sitting Pulse 94 Pulse Source Pulse Oximeter Temp 98.3 F Temp Source Oral Pulse Oximetry (%) 99 Oxygen Delivery Method Room Air Intake Visit Reasons: EP-legs & arms hives Intake Note: pt presents with itchy hives to arms and legs- mostly to legs and worse in the mornings, also notes occasional hand swelling and itchiness Patient Tobacco Use Status: Former Tobacco user Allergies tramadol Allergy (Unknown, Verified 03/28/25 09:27) vomiting, swelling, swelling Medication List - Last Reconciled 03/28/25 by Payal Dorman NP cholecalciferol (vitamin D3) 50 mcg PO DAILY 90 days Do you need a note to return to daycare/school/sports/work: No HPI HPI Comments History of Present Illness Details 44 y/o Female patient who presents to [facility] walk [facility] clinic with c/o Hives covering her entire body. Reports noticing the hives more so in the morning when she wakes up. Reports itching and redness. Denies any changed to her diet or medications. Denies any new cosmetic products, or detergents. Denies Facial Edema, SOB, chest tightness or wheezing. Denies seasonal allergies or medication allergies. [facility] Medical History (Updated 03/28/25 @ 10:24 by Payal Dorman NP) Urticaria Bartholin's gland abscess FH: breast cancer in first degree relative Physical exam Fibroadenoma of left breast Pure hypercholesterolemia Hypovitaminosis D Surgical History History of tubal ligation History of removal of cyst History of appendectomy History of section Family History Father Medical history unknown Mother Skin cancer Diabetes Maternal Grandmother Breast cancer Maternal Grandfather Cancer CVD (cardiovascular disease) Sister Breast cancer, Onset Age: 40 Social History Housing: House Alcohol intake: never Patient Tobacco Use Status: Former Tobacco user Tobacco use type: Cigarette e-Cigarette/Vaping Use: Never Used Second Hand Smoke Exposure: No service: No Current occupational status: employed Current occupational exposures/hazards: No Cognitive needs: No Hearing needs: No Vision needs: No Review of Systems Const All systems reviewed & are unremarkable except as noted in HPI and below Physical Exam Vital Signs: Last Vital Signs Temp 98.3 F 03/28/25 09:26 Pulse 94 03/28/25 09:26 BP 148/90 H 03/28/25 09:26 Pulse Ox 99 03/28/25 09:26 Oxygen Delivery Method Room Air 03/28/25 09:26 BMI result Body Mass Index 28.0 Const General: no acute distress Nutritional Appearance: well nourished Orientation/consciousness: patient oriented x3 Skin Rashes: rashes noted (Hives present on lower and upper extremities. ) Neuro General: patient oriented x3 and moves all extremities Psych Speech and movement: Normal speech and movement present Assessment & Plan Assessment & Plan (1) Urticaria: Code(s): L50.9 - Urticaria, unspecified Plan: Ordered Prednisone, Famotidine and Cetirizine. Advised has an upcoming appointment with Derm (at [facility]) next year December. Offered Patient Information for [facility] or [facility] for an appointment. F/U with PCP. Medications: New cetirizine (Zyrtec) 10 mg PO DAILY 20 tabs 0RF L50.9 - Urticaria, unspecified famotidine 20 mg PO BEDTIME 20 tabs 0RF L50.9 - Urticaria, unspecified prednisone 20 mg PO DAILY 10 tabs 0RF L50.9 - Urticaria, unspecified Discontinued fluticasone propionate 50 mcg/actuation (Flonase Allergy Relief) administer into each nostril Discontinued Reason: Patient Completed Course 1 spray intranasal DAILY 30 days 16 grams 1RF Coding Level of Care Code Est Pt Level 4 (66797) Diagnoses Urticaria L50.9 Time Spent (min) 20
== END 2025-03-28 10:36 | disposition home or self-care (01) ==
PROVIDERS: PCP Internal Medicine; Visit Provider Nurse Practitioner Family
DX: L50.9 Urticaria, unspecified (principal)

== ENCOUNTER → 2025-03-28 09:21 | Outpatient (BNVA) | payer OTHER, SELFPAY | PROVIDERS: PCP Internal Medicine; Visit Provider Nurse Practitioner Family | DX: L50.9 Urticaria, unspecified (principal) | CPT/HCPCS: 99212 ==